=== PATIENT | male | born 1980 | race Caucasian/White ===

== ENCOUNTER 2018-09-03 15:22 | Outpatient (CLI) | END 2018-09-03 15:32 | disposition short-term general hospital (02) | LOC: AMBL 15:22 | PROVIDERS: ATTEND Internal Medicine | DX: M54.2 Cervicalgia (principal); S01.01XA Laceration without foreign body of scalp, initial encounter; V44.9XXA Unspecified car occupant injured in collision with heavy transport vehicle or bus in traffic accident, initial encounter; R11.0 Nausea ==